=== PATIENT | female | born 1945 | race African-American/Black ===

== ENCOUNTER 2016-10-19 08:06 | Inpatient (IN) | payer OTHER ==
--- NOTE | ~2016-10-19 | CN ---
Consultation Report [facility] [address] [place]. [address] NAME: RENE PONCE : 49 STATUS : ADM IN PAT#: [id number] AGE: 71 ADM/REG DATE : 10/19/16 MR#: [id number] REPORT SERV DATE: 10/19/16 DICTATED BY: JAILENE LEIVA DATE: 10/19/16 REPORT STATUS : Draft TRANSCRIBED BY: MODTameka DATE: 10/19/16 CONSULTATION DATE OF CONSULTATION: REQUESTING PHYSICIAN: Getachew Garcia M.D. REASON FOR CONSULTATION: Acute kidney injury versus progressive chronic kidney disease. HISTORY OF PRESENT ILLNESS: This is a pleasant 71-year-old female patient, who was previously seen by Dr. Kali Hollins with our practice in 2014, and seen in followup post that by Dr. Blake Helton, with last known baseline creatinine at 2.5 in 2014, with the patient being evaluated in March of 2016 with acute kidney injury at 3.0, dissipating to 2.8 on 04/10/2016 with dismissal. She was recently in [facility] and was evaluated while there by our service for acute kidney injury. She was seen in consultation by Dr. Nunes for acute kidney injury versus progressive chronic kidney disease, with serum creatinine of 4.9 on 10/12/2016. She was subsequently followed by Dr. Guadalupe with creatinine at 4.8 on 10/13/2016. On 10/14/2016, creatinine at 4.7, and she was dismissed on 10/15/2016 by the hospitalist service with intentions for rapid followup. Indications and available PMD discussion suggests that the patient would likely be sent home on p.o. antibiotics. The patient according to the daughter was not dismissed on antibiotics to home. Mentation was noted to be problematic during her evaluation at [facility], but had improved with inpatient treatment, thus, no neurologic consultation was undertaken. The patient reports now to [facility] as Dr. Getachew Garcia will be taking over her primary care and they have seen Dr. Garcia's, nurse practitioner. The daughter reports that the patient's mentation has become worse over the last 48 hours and progressively declined. She has chronic difficulty with nausea and has had poor p.o. intake and has also had at least one to two appearances of emesis. The patient is lying in bed this afternoon and is somewhat confused at baseline. The daughter states that approximately three to four weeks ago, her baseline mentation was stable. A cursory imaging here at [facility] with CT of the brain without contrast shows involutional changes and chronic ischemic findings with no acute finding demonstrated on the noncontrast CT of the brain. The patient is awake and alert. Mentation is poor as above. Much of her medical history and recent information for HPI is provided by her daughter. PAST MEDICAL HISTORY: Positive for chronic kidney disease with baseline creatinine is as listed above. Most recent serum creatinine at 4.7 on 10/14/2016, with previous notation of creatinine prior baseline noted back in 2015 at 2.8 in March of that year. Remainder of her medical history is positive for hypertension, multiple sclerosis followed by Dr. Brittnee Levin, CHF, unknown ejection fraction, carpal tunnel, glaucoma, hysterectomy in 1984. REVIEW OF SYSTEMS: Review of systems is completed with the assistance of family who was at bedside. Consultation Report [address] [place]. [address] NAME: RENE PONCE : 49 STATUS : [facility]#: [id number] AGE: 71 ADM/REG DATE : 10/19/16 MR#: [id number] REPORT SERV DATE: 10/19/16 DICTATED BY: JAILENE LEIVA DATE: 10/19/16 REPORT STATUS : Draft TRANSCRIBED BY: FREDDIE DATE: 10/19/16 SOCIAL HISTORY: Currently no EtOH. No illicit drugs. No tobacco. She does have a previous remote history of tobacco abuse according to the daughter, smoking approximately one pack per day. Duration of tobacco abuse is unknown as the daughter was at the time of her mother's tobacco abuse very young. PHYSICAL EXAMINATION: VITAL SIGNS: Blood pressure 152/65, pulse 93, respirations 18, oxygen saturation at 100%. She was 90.71 kilos. GENERAL: She is a chronically ill-appearing female patient, with baseline confusion, lying in bed during evaluation. HEENT: Normocephalic and atraumatic. Normal ocular movements. No scleral icterus. No conjunctival pallor is appreciated. NECK: Supple without thyromegaly. No JVD or mass. CHEST: Shows positive S1 and S2. No rubs or gallops. LUNGS: Diminished. Clear to auscultation throughout, with normal expansion and effort bilaterally without rhonchi or wheezes. GASTROINTESTINAL: Positive bowel sounds in all four quadrants. No appreciable mass or tenderness. GENITOURINARY: Deferred. She does have a Chatterjee catheter with clear yellow urine at the bedside drainage. NEUROLOGIC: She is difficult to test, but appears to be at baseline confused, but grossly intact and nonfocal. EXTREMITIES: Show positive pulses to all four extremities. She does have some noted lower extremity edema. She appears to have some level of footdrop to cursory evaluation. PSYCH: She is of appropriate mood and affect overall, but again at baseline confused. ALLERGIES: SHE LISTS TO CODEINE AN ALLERGY. MEDICATIONS: On entry are as follows amlodipine 5 mg p.o. daily, vitamin C 500 mg p.o. b.i.d., Rocaltrol 0.5 mcg p.o. daily, Nexium 40 mg daily, Apresoline 25 mg p.o. t.i.d., Lopressor 25 mg p.o. b.i.d., multivitamin one tab p.o. daily, and Ditropan 5 mg p.o. daily. FAMILY HISTORY: No indication of chronic renal disease or end-stage renal disease. LABORATORY AND DIAGNOSTIC DATA: Pertinent laboratories and imaging to this evaluation are as follows. AP portable chest x-ray shows no acute findings. CMP shows sodium 139, potassium 4.1, chloride 108, CO2 18, BUN 54, creatinine at 5.51, reflected GFR at 8 mL/minute. Glucose of 137, calcium 10.0, magnesium 2.3, total protein 6.7, albumin 2.7, ALT 11, AST 12, lipase 280, troponin less than 0.02. White blood cell count of 12.4, RBC 3.90, hemoglobin 10.7, hematocrit 32.4. CT of the brain without contrast, no acute findings as listed above in HPI. CT of the abdomen and pelvis shows a fecal impaction in the rectum with 7 cm stool ball, no acute finding otherwise demonstrated on noncontrast CT of the abdomen and pelvis. Urinalysis is hazy in appearance, specific gravity of 1.10, minimal white blood cells or RBCs, no indication of glucose, or ketones. No indication of leukocyte esterase. Protein to greater than 500 mg/dL. Consultation Report [facility] [address] [place]. [address] NAME: RENE PONCE : 49 STATUS : ADM IN PAT#: [id number] AGE: 71 ADM/REG DATE : 10/19/16 MR#: [id number] REPORT SERV DATE: 10/19/16 DICTATED BY: JAILENE LEIVA DATE: 10/19/16 REPORT STATUS : Draft TRANSCRIBED BY: MODTameka DATE: 10/19/16 IMPRESSION AND PLAN: This is a 71-year-old female patient, who is evaluated at [facility] after recent inpatient stay at [facility] with HPI as reflected above. Mentation has worsened over the last 48 to 72 hours. We have been consulted in regard to worsening renal function. It does not appear that she currently has an active urinary tract infection judging by cursory evaluation of her urinalysis. She does have an elevated white count, but has had no febrile episodes according to the family at home. Her appetite has diminished and she has had some difficulty with nausea and least on two occasions some level of emesis. There was a question at previous hospitalization regarding possible dementia, but it is unclear at this point, if there was further workup undertaken. The daughter who is at bedside this afternoon states that the patient was not further evaluated by Neurology Services while there. She does state that her mother's current mental status has worsened and dissipated over the last two to three weeks. Current plan from a renal perspective will be the following; check urine studies including urine creatinine and urine sodium. Check BNP with known history of a congestive heart failure. Consider echocardiogram, but we will deferred to primary team. Spot protein to creatinine ratio. Blood cultures x2, as she does have an elevated white count, and no indication of urinary tract infection, with depressed bicarb. We will place her on quarter normal saline with 2 amps of bicarb at 100 mL an hour, with careful in judicious hydration, due to her known history of congestive heart failure, with unclear ejection fraction. She does have good urinary output currently and her potassium is stable which is encouraging. However, her altered mentation may be progressive uremia, if not dementia, and she may certainly need to initiate hemodialysis. If in fact this is dementia, we will have to consider overall appropriateness for hemodialysis as we progress. She is also followed by Dr. Brittnee Levin for lupus, and the patient has historically been on injections, and then changed to p.o. control as she apparently had a rather difficult time with administering injections. We will defer antibiotic coverage as well as addressing fecal impaction to primary team, quarter normal saline as listed above, urine studies, check BNP, check spot protein to creatinine ratio, blood cultures x2, n.p.o. after midnight, and consider possible hemodialysis over the next 24 to 48 hours if clinically the patient does not improve. The family is at bedside and they have been advised of current treatment plan and they are in agreement. Further modification of treatment plan may be made based on clinical presentation of the patient laboratory results, further consultation with renal attending. We appreciate consultation. We are glad to follow this patient with you. DICTATED BY: Forrest Gates NP JR/FREDDIE Jailene Leiva M.D. / [id number] Consultation Report [address] [place]. [address] NAME: RENE PONCE : 49 STATUS : [facility]#: [id number] AGE: 71 ADM/REG DATE : 10/19/16 MR#: [id number] REPORT SERV DATE: 10/19/16 DICTATED BY: JAILENE LEIVA DATE: 10/19/16 REPORT STATUS : Draft TRANSCRIBED BY: FREDDIE DATE: 10/19/16 CC: Getachew Garcia M.D.
--- NOTE | ~2016-10-19 | EEG ---
Electroencephalogram [facility] [id number] [place]. [address] NAME: RENE PONCE : 49 STATUS : ADM IN PAT#: [id number] AGE: 71 ADM/REG DATE : 10/19/16 MR#: [id number] REPORT SERV DATE: 10/20/16 DICTATED BY: GURVINDER BOYD DATE: 10/20/16 REPORT STATUS : Draft TRANSCRIBED BY: FREDDIE DATE: 10/20/16 ELECTROENCEPHALOGRAPHY REPORT REQUESTING PHYSICIAN: Dr. Getachew Garcia. ORDERING PHYSICIAN: Dr. Cassy Aguilera APN. INTERPRETING PHYSICIAN: Gurvinder Boyd M.D.-Neurology. REASON FOR EEG: History of possible seizures, altered mental status. 23 surface electrodes, 10-20 international placement was used. The patient was noted to be awake, drowsy, and asleep. Photic stimulation was performed. The video monitoring was utilized. The background activity consisted of moderate voltage poorly organized 8 cycles per second located in the posterior head regions. This activity did not appear to attenuate very well with eye opening maneuvers. During stage 2 sleep, the patient observed to have intermittent bilaterally synchronous and asynchronous low-voltage spike activity which was present in the central and temporal regions. This spike activity was isolated to one or multiple spikes. The frequency of the epileptiform discharges increased until the patient was observed to have tonic-clonic activity of the shoulders. Sustained muscle contraction was observed and this represented a seizure activity which lasted approximately 60 seconds. The patient appeared to have 2 more episodes of seizure activity following discharges of low voltage spike activity which appeared to be generalized and bilaterally synchronous. The activity was most prominent in the frontal and central regions. IMPRESSION: MARKEDLY ABNORMAL EEG CHARACTERIZED BY PRESENCE OF INTERMITTENT PAROXYSMAL LOW VOLTAGE SPIKE ACTIVITY WHICH INVOLVES FRONTAL CENTRAL REGIONS EVENTUALLY GENERALIZED TO A TONIC-CLONIC SEIZURE. THE ABOVE-MENTIONED ACTIVITY OCCURRED DURING STAGE 2 SLEEP. THE PATIENT'S PARTS SALES COUNTERPERSON AT THE TIME OF ABNORMAL ACTIVITY REMAINED STABLE WITH REGULAR SINUS RHYTHM OF APPROXIMATELY 72 BEATS PER MINUTE. SLIGHT PROLONGATION OF THE PA INTERVAL WAS NOTED AND POSSIBLE PACEMAKER ARTIFACT WAS ALSO SEEN. THIS EEG IS COMPATIBLE WITH PRESENCE OF A SEIZURE DISORDER OF GENERALIZED TYPE. CLINICAL CORRELATIONS AND NEUROLOGICAL FOLLOWUP IS RECOMMENDED. [place]/FREDDIE Gurvinder Boyd MD / [id number] CC: Getachew Garcia M.D.
--- NOTE | ~2016-10-19 | CN ---
Consultation Report [facility] [address] [place]. [address] NAME: RENE PONCE : 49 STATUS : ADM IN [facility]#: [id number] AGE: 71 ADM/REG DATE : 10/19/16 MR#: [id number] REPORT SERV DATE: 10/26/16 DICTATED BY: JEFFERY CUENCA DATE: 10/26/16 REPORT STATUS : Draft TRANSCRIBED BY: FREDDIE DATE: 10/26/16 DATE OF CONSULTATION: 10/26/2016 REASON FOR CONSULTATION: Uncontrollable hypertension, worsening mental status. CHIEF COMPLAINT: Unable to obtain due to the patient's current medical status. HISTORY OF PRESENT ILLNESS: Mrs. Ponce is a 71-year-old female, who has been admitted now for over a week with underlying encephalopathy, hypertension, kidney failure, and seizures. Per nursing staff, the patient had another seizure and was having hypertension at that time. Neurology is currently involved, and the patient is on antiepileptic drugs. Speaking to the patient this morning, I am unable to obtain any following of commands. She is able to protect her airway, however. She has been placed on nicardipine, which does seem to reduce her blood pressure which was around 200, now down to about 130. Otherwise, no further complaints. PAST MEDICAL HISTORY: Chronic kidney disease, congestive heart failure, multiple sclerosis, hypertension, glaucoma, carpal tunnel. HOME MEDICATIONS: Home medication list reviewed. Antihypertensive medications are amlodipine and Lopressor. ALLERGIES: CODEINE. FAMILY HISTORY: Currently, no family at the bedside. Per record, no chronic kidney disease. The patient's mother of a brain aneurysm. SOCIAL HISTORY: The patient is single. She has a history of tobacco use. No current alcohol or illicit drug use. REVIEW OF SYSTEMS: All pertinent review of systems reviewed and is otherwise negative. PHYSICAL EXAMINATION: VITAL SIGNS: The patient is currently afebrile, heart rate in the 80s, respiratory rate 10 to 15, oxygen saturation 97% on room air, blood pressure prior to coming in was over 200 and now at 135. GENERAL: The patient seems to be in no distress. Noncommunicative, does not follow commands. NECK: Supple. No JVD. PULMONARY: Equal breath sounds bilaterally. No wheezing. CARDIAC: Regular rate. No murmurs. ABDOMEN: Soft, nontender, nondistended. EXTREMITIES: Peripheral pulses noted in all extremity. No cyanosis. Consultation Report [facility] [id number] [place]. [address] NAME: RENE PONCE : 49 STATUS : ADM IN [facility]#: [id number] AGE: 71 ADM/REG DATE : 10/19/16 MR#: [id number] REPORT SERV DATE: 10/26/16 DICTATED BY: JEFFERY UCENCA DATE: 10/26/16 REPORT STATUS : Draft TRANSCRIBED BY: MODL DATE: 10/26/16 LABORATORY EXAMINATION: Mild anemia. Creatinine 4.25, BUN 73, bicarb 16, ammonia 16. IMAGING: MRI of the brain done on 10/21 shows diffusely enlarged ventricles, mild-to- moderate chronic microvascular ischemic changes. ASSESSMENT AND PLAN: Mrs. Ponce is a 71-year-old female with a past medical history noted above, who presents with worsening mental status changes in the setting of seizures and hypertension, unclear whether hypertension is a reflection of the seizure activity. 1. Hypertensive urgency: We will discontinue clonidine, but continue clonidine transdermal patch. Since the patient is not taking anything by mouth, we will give metoprolol 10 mg IV q.6 along with hydralazine 20 mg IV q.6 and wean off the nicardipine. Once she is able to take p.o., we can also start Imdur and amlodipine and transition to p.o. medications. 2. Altered mental status: Neurology is currently following. The patient is protecting her airway luckily. Cannot take p.o. due to the patient's medical status. Thank you very much for this consultation. We will continue to follow along with you in the critical care unit. Please call with any further questions or concerns. HFQ/MODL Jeffery Cuenca MD / [id number] CC: Getachew Garcia M.D.
--- NOTE | ~2016-10-19 | EEG ---
Electroencephalogram [facility] [address] [place]. [address] NAME: RENE PONCE : 49 STATUS : ADM IN PAT#: [id number] AGE: 71 ADM/REG DATE : 10/19/16 MR#: [id number] REPORT SERV DATE: 10/24/16 DICTATED BY: DATE: REPORT STATUS : Draft TRANSCRIBED BY: MODL DATE: 10/24/16 NEUROLOGY EEG REPORT CLINICAL INDICATIONS: Encephalopathy. DESCRIPTION: This EEG was performed using 10/20 electrode placement system. During the EEG study, symmetric background activity was noted with predominant occipital rhythm of roughly 8 hertz. Photic stimulation was performed. No clear driving response was seen during the EEG study. Significant muscle artifact was noted with the patient noted to have episodes of rhythmic muscle artifacts during the EEG study, mostly in the bilateral central frontal area best seen in the transverse montage. No clear high-voltage epileptiform discharge was otherwise noted. However secondary to muscle artifact, low voltage epileptiform discharge cannot be ruled out especially during the rhythmic muscle movement. Hyperventilation was not performed during the EEG study. Bilateral upper extremity showed a jerk observed during previous EEG, was not observed during this EEG study. The patient achieved drowsy state during the EEG study. INTERPRETATION: This EEG study obtained during awake and drowsy state is contaminated with significant muscle artifact as well as presence of rhythmic muscle activities which might have obscured underlying epileptiform discharge. Subtle subclinical seizure cannot be completely ruled out. The patient remains encephalopathic during the EEG evaluation. [facility]/MODL Darren James MD / [id number] CC: Getachew Garcia M.D.
--- NOTE | ~2016-10-19 | EEG ---
Electroencephalogram [facility] [address] [facility] [place]. [address] NAME: RENE PONCE : 49 STATUS : ADM IN PAT#: [id number] AGE: 71 ADM/REG DATE : 10/19/16 MR#: [id number] REPORT SERV DATE: 10/22/16 DICTATED BY: DATE: REPORT STATUS : Draft TRANSCRIBED BY: MODL DATE: 10/22/16 CLINICAL INDICATIONS: Seizures, encephalopathy. DISCUSSION: This EEG was performed using 10/20 electrode placement system. During the EEG study, symmetric background activity was noted with muscle artifact contamination. The patient was noted to have a predominant occipital rhythm of roughly 7-8 hertz. Initially, the patient was noted to have a P3 electrode artifact that was subsequently resolved after adjustment of the P3 electrodes. Photic stimulation was performed, however, no clear driving response was seen. Hyperventilation was not performed secondary to the patient's underlying medical condition. During the EEG study, the patient achieved drowsy, stage I and II sleep with appropriate K-complexes and sleep spindles. No electrographic seizure was otherwise seen. No clinical seizure was observed. INTERPRETATION: This EEG study obtained during awake and drowsy as well as stage I and II sleep may be considered within normal limits. No focal abnormalities, seizure activity, or seizure discharge were noted. No electrographic seizure was otherwise seen. No clinical seizure was otherwise observed. Clinical correlation is recommended. [facility]/FREDDIE Darren James MD / [id number] CC: Getachew Garcia M.D.
--- NOTE | ~2016-10-19 | DS ---
Discharge Summary [facility] [address] [place]. [address] NAME: RENE PONCE : 49 STATUS : DIS IN PAT#: [id number] AGE: 71 ADM/REG DATE : 10/19/16 MR#: [id number] REPORT SERV DATE: 11/07/16 DICTATED BY: JESÚS LOZA DATE: 11/06/16 REPORT STATUS : Draft TRANSCRIBED BY: FREDDIE DATE: 11/06/16 Data Collection from hospitalization DISCHARGE DIAGNOSES: 1. Altered mental status-encephalopathy. 2. Seizures. 3. Dysphagia. 4. Hypertension. 5. Chronic kidney disease-not candidate for hemodialysis secondary to #1. 6. Vascular dementia. 7. History of multiple sclerosis. 8. History of transient ischemic attack. 9. Incontinence. 10.Gastroesophageal reflux disease. 11.Congestive heart failure. 12.Glaucoma. 13.Former smoker. CONSULTATIONS: Dr. Cj Leiva, Cassy Aguilera, and Dr. Jeffery Cuenca. PROCEDURES: 1. CT scan of the brain without contrast, 10/19/2016. 2. CT scan of the abdomen and pelvis without contrast, 10/19/2016. 3. Renal ultrasound, 10/20/2016. 4. Carotid blood flow study, 10/21/2016. 5. MRI of the brain without contrast, 10/21/2016. 6. Fluoroscopic-guided lumbar puncture, 10/24/2016. 7. Electroencephalogram, 10/20/2016. 8. Electroencephalogram, 10/22/2016. 9. Electroencephalogram, 10/24/2016. DISCHARGE MEDICATIONS: Norvasc 5 mg twice a day, aspirin 81 mg daily, Depakote 750 mg twice a day, Keppra 500 mg twice a day, Lopressor 25 mg twice a day, Catapres-TTS 0.3 mg topically every seven days, Apresoline 25 mg every 8 hours, Deltasone 40 mg with breakfast. CONDITION ON DISCHARGE: Stable. DISPOSITION: The patient was discharged to [facility] to be followed by [facility]. HOSPITAL COURSE: This is a 71-year-old female who had developed an acute mental status change. The patient has a history of multiple sclerosis and chronic kidney disease. She had developed projectile vomiting Thursday prior to this admission. She has a history of chronic kidney disease, and her family had been concerned, and she was taken to [facility]. She had been admitted to the hospital there and had various testing done. She was sent home on Thursday prior to this admission. According to her granddaughter, she was not placed on any medication. The patient did not talk or eat for two days. She was confused most likely due to her urinary tract infection. The patient's granddaughter said the Discharge Summary [facility] [id number] [place]. [address] NAME: RENE PONCE : 47 STATUS : DIS IN PAT#: [id number] AGE: 71 ADM/REG DATE : 10/19/16 MR#: [id number] REPORT SERV DATE: 11/07/16 DICTATED BY: JESÚS LOZA DATE: 11/06/16 REPORT STATUS : Draft TRANSCRIBED BY: FREDDIE DATE: 11/06/16 patient had been confused on and off ever since she stopped taking her Avonex injections 2- 1/2 years previously. The patient had been taken off the Avonex because she kept getting urinary tract infections. The granddaughter also mentioned that the patient had "episodes of silence" in which she had intermittent right-sided facial droop with ptosis and right- sided weakness. She was admitted to the hospital at this time for further evaluation and treatment. Upon admission, the patient was seen by Dr. Cj Leiva regarding acute kidney injury versus progressive chronic kidney disease. A CT scan of the brain without contrast had been performed as well as a CT scan of the abdomen and pelvis without contrast. CT scan of the brain showed involutional changes and chronic ischemic findings with no acute findings demonstrated on the noncontrast CT scan of the brain. Her mentation was poor. Creatinine level was 5.51. CT scan of the abdomen and pelvis showed no acute findings other than a fecal impaction in the rectum with a 7 cm stool ball. Her mentation had worsened over the last 48 to 72 hours. It did not appear that she currently had an active urinary tract infection. She did have an elevated white count but no febrile episodes according to her family at home. Her appetite was diminished, and she had some difficulty with nausea and at least 2 occasions of some level of emesis. Blood cultures were obtained. She was placed on IV fluids. Urine studies and BNP were going to be checked as well as spot protein to creatinine ratio. The following day, she was seen by Cassy Aguilera. A renal ultrasound had been performed. She had been asked to see the patient regarding acute mental status change with a history of multiple sclerosis. She was felt to have acute metabolic encephalopathy that was multifactorial in nature. An MRI of the brain without contrast was requested as well as a carotid duplex study and echocardiogram with bubble study. She was placed on aspirin and Lipitor. EEG was going to be performed. She was felt to have probable underlying dementia. 10/20/2016, white count was 9.8. The patient does have vitamin D deficiency. An EEG was performed. It was markedly abnormal characterized by the presence of intermittent paroxysmal low voltage spike activity which involves frontal central regions, eventually generalized to a tonic-clonic seizure. The above-mentioned activity occurred during stage 2 sleep. supervisor [employer] at the time of abnormal activity remained stable with regular sinus rhythm of approximately 72 beats per minute. There was slight prolongation of the WI interval, and possible pacemaker artifact was also seen. 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 Her pressure was not well controlled. The patient was on Keppra. The patient had been having intermittent seizures which could explain the episode of poor responsiveness. Adjustments were made to Keppra. ABGs were going to be checked. Following day, she did have some right upper extremity movement/myoclonus like movement. She was receiving Keppra, Dilantin, and Depakote. Vimpat was added. We were considering adding scheduled Ativan and Solu-Medrol. If the blood culture grows contaminant, we would start a trial of Solu-Medrol. An MRI of the brain without contrast was performed as well as a carotid blood flow study. She was evaluated by Occupational Therapy and Physical Therapy. Urinalysis had revealed a urinary tract infection. She had 2+ edema of the legs and feet. Maxipime was stopped. 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 She continued to have confusion. A PICC line was inserted. She could follow simple commands. MRI showed no acute CVA or other acute intracranial pathology. There were diffusely enlarged ventricles. Supportive care continued. Electroencephalogram was performed. This EEG study obtained during awake and drowsy as well as stage 1 and 2 sleep may be considered within normal limits. There were no Discharge Summary [facility] [address] [place]. [address] NAME: RENE PONCE : 47 STATUS : DIS IN PAT#: [id number] AGE: 71 ADM/REG DATE : 10/19/16 MR#: [id number] REPORT SERV DATE: 11/07/16 DICTATED BY: JESÚS LOZA DATE: 11/06/16 REPORT STATUS : Draft TRANSCRIBED BY: FREDDIE DATE: 11/06/16 focal abnormalities, seizure activity, or seizure discharge noted. No electrographic seizure was seen otherwise. No clinical seizure was otherwise observed. Blood pressure was controlled at this time. The patient is not a candidate for hemodialysis. On 10/23/2016, she did have a cough with oral intake. She was held n.p.o. secondary to her constant coughing. It was felt that she should undergo a lumbar puncture. Repeat EEG was requested. She was evaluated by Physical Therapy. She was found to have seizure activity again on 10/24/2016. A bedside swallow study was performed. There were no overt signs or symptoms of aspiration. She does have a delayed swallow. Aspiration precautions were in place. Repeat EEG was performed. This study was contaminated with significant muscle artifact as well as the presence of rhythmic muscle activities which might have obscured underlying epileptiform discharge. Subtle subclinical seizure could not be completely ruled out. The patient remained encephalopathic during the EEG evaluation. Fluoroscopic-guided lumbar puncture was also performed. On the , the patient had been on a 72-hour trial of Solu-Medrol with no improvement. Her mentation was not improving despite aggressive therapy. Keppra was decreased. Ammonia level was going to be checked. Solu-Medrol was stopped. Oral steroids were started. A [facility] liaison met with the patient at the bedside. The patient's family was going to meet with [facility] to discuss placement. On the , Keppra was again decreased. The patient remained a DNR code status. She was receiving Cardene drip. Medications were changed to IV dosing. We were going to proceed with comfort care. On the , she was able to tolerate pills with ice cream. Keppra was again decreased. Depakote was decreased. She had been seen by Dr. Jeffery Cuenca regarding uncontrollable hypertension and worsening mental status. The patient was unable to follow commands. She was able to protect her airway. She had been placed on nicardipine which did seem to reduce her blood pressure. Creatinine level was 4.25. Clonidine had been discontinued, but clonidine transdermal patch was continued. She was receiving IV metoprolol and IV hydralazine. She was being weaned off the nicardipine. It was felt that the patient did not meet the criteria [facility]. The goal was for placement at half-way facility. Physical therapy was placed on hold. On 10/28/2016, Lopressor was changed to oral Norvasc. Hydralazine was restarted. She continued to be very encephalopathic. The patient's family had requested hospice. Discharge instructions were given. Due to her stable condition, she was discharged to [facility] to be followed by [facility]. Information collected by: Naida Renteria I submit the above information as my discharge summary. ESTHER/FREDDIE Jesús Loza M.D. / [id number] CC: Isabel Joy MD Discharge Summary [address] [address] NAME: RENE PONCE : 47 STATUS : DIS IN PAT#: [id number] AGE: 71 ADM/REG DATE : 10/19/16 MR#: [id number] REPORT SERV DATE: 11/07/16 DICTATED BY: JESÚS LOZA DATE: 11/06/16 REPORT STATUS : Draft TRANSCRIBED BY: MODTameka DATE: 11/06/16 Cj Leiva M.D. [facility]
--- NOTE | ~2016-10-19 | CN ---
Consultation Report [facility] [address] [place]. [address] NAME: RENE PONEC : 49 STATUS : ADM IN PAT#: [id number] AGE: 71 ADM/REG DATE : 10/19/16 MR#: [id number] REPORT SERV DATE: 10/20/16 DICTATED BY: MARTHA GÓMEZ DATE: 10/20/16 REPORT STATUS : Draft TRANSCRIBED BY: MODTameka DATE: 10/20/16 NEUROLOGY CONSULTATION DATE OF CONSULTATION: 10/20/2016 REASON FOR CONSULTATION: Acute mental status change with a history of multiple sclerosis. NEUROLOGIST: Dr. Brittnee Levin. HISTORY OF PRESENT ILLNESS: The patient is a 71-year-old female who began to projectile vomit last Thursday. She has a history of chronic kidney disease, and her family was concerned so they took her to [facility]. She was admitted to the hospital and had various testing done. She was sent home on Thursday, and according to the granddaughter, was not placed on any medications. The patient would not talk or eat for two days. She then was confused most likely due to her UTI. The granddaughter was asked specifically if it was "common for her to be confused." The granddaughter who is a certified lactation educator at a facility that takes care of dementia patients stated that the patient commonly was confused and questionably had underlying dementia. She mentions that the patient has been confused on and off ever since she stopped taking her Avonex injections two and a half years ago. The patient was taken off her Avonex because she kept getting urinary tract infections. The granddaughter also mentions that the patient has "episodes of silence" in which she has intermittent right-sided facial droop with ptosis and right-sided weakness. PAST MEDICAL HISTORY: Multiple sclerosis, chronic kidney disease, hypertension, congestive heart failure, carpal tunnel syndrome, glaucoma, history of tobacco abuse, and obesity. PAST SURGICAL HISTORY: Total abdominal hysterectomy, left total knee arthroplasty (the patient acquires sepsis in the knee so the artificial joint was taken out and she had a arturo replacement), bilateral carpal tunnel release, and trabeculectomy. HOME MEDICATIONS: List includes Norvasc 5 mg daily, vitamin C 500 mg b.i.d., Rocaltrol 0.5 mg q.a.m., Nexium 40 mg daily, Apresoline 25 mg t.i.d., Lopressor 25 mg b.i.d., multivitamin daily, Ditropan XL 5 mg q.a.m. ALLERGIES: CODEINE. SOCIAL HISTORY: The patient is single. She lives with her daughter. She has one child. She has a history of tobacco abuse. No alcohol or illicit use. FAMILY HISTORY: Unobtainable from the patient. The granddaughter mentions that her the patient's mother of a brain aneurysm, but the rest of her family history is unknown. REVIEW OF SYSTEMS: Consultation Report [facility] [address] [place]. [address] NAME: RENE PONCE : 47 STATUS : ADM IN [facility]#: [id number] AGE: 71 ADM/REG DATE : 10/19/16 MR#: [id number] REPORT SERV DATE: 10/20/16 DICTATED BY: MARTHA GÓMEZ DATE: 10/20/16 REPORT STATUS : Draft TRANSCRIBED BY: FREDDIE DATE: 10/20/16 Please refer to HPI. PHYSICAL EXAMINATION: VITAL SIGNS: The patient is a 71-year-old female, who stands 5 feet 6 inches tall and weighs 185 pounds. She is slightly febrile with a temperature of 99.1 degrees, heart rate 89, respiratory rate 16, O2 saturations on room air 99%, blood pressure is 193/77. NEURO: The patient is alert. She is talkative, confused. She is oriented to person only, not place, time, or situation. She will follow simple commands. Speech is clear. Language fluent. Pupils are 3 mm. PERRLA. EOMs are intact. Unable to accurately assess peripheral vision via confrontation. The patient has ptosis of the right eye. She has right facial droop. No tongue deviation. No reported sensory deficits when checking regions of the trigeminal nerve. Unable to adequately perform [id number]. She does have a pronator drift on the right. Upper extremity strength on the left is 5/5, on the right is 4/5. No obvious tremor, dysmetria, or asterixis. Upper DTRs are 2+ bilaterally. No reported sensory deficits. Lower extremity strength is 2/5 bilaterally. The patient has footdrop bilaterally. Unable to elicit a DTR in the left patellar region (chronic right patellar is 1+). Plantar reflexes, downgoing toes. The patient is unable to ambulate. NECK: No carotid bruits, JVD, or thyromegaly. CHEST: Lung sounds reveal some crackles in the bases. CARDIAC: Regular rate and rhythm. CBC shows a hemoglobin and hematocrit of 9.8 and 28.7. BMP: BUN is 51 and creatinine 4.83. Urinalysis is positive for UTI. CT of the abdomen and pelvis, fecal impaction, [address] of the brain, no acute changes. ASSESSMENT/PLAN: 1. Acute encephalopathy, is multifactorial in nature and this is. a. The patient has a urinary tract infection and this is being treated per the hospitalist. b. Must rule out stroke, the patient will undergo an MRI of the brain without gadolinium, carotid duplex study, and echocardiogram with bubble study. She will be placed on aspirin 81 mg p.o. daily and Lipitor 40 mg p.o. at bedtime. c. Rule out seizure, she will undergo an EEG today. 2. Multiple sclerosis. The patient will have PT/OT consultation and have a bedside dysphagia screen. If she fails, she will have Speech Therapy consultation. She will follow up with a neurologist outpatient, doubtful if this is an exacerbation unless her MRI shows inflammation. 3. Hypertension. This will be treated per hospitalist team. 4. Acute kidney injury in addition to chronic kidney disease. 5. Probable underlying dementia. Thank you again for including us in consultation. We will follow with you. Consultation Report [address] [place]. [address] NAME: RENE PONCE : 49 STATUS : ADM IN [facility]#: [id number] AGE: 71 ADM/REG DATE : 10/19/16 MR#: [id number] REPORT SERV DATE: 10/20/16 DICTATED BY: MARTHA GÓMEZ DATE: 10/20/16 REPORT STATUS : Draft TRANSCRIBED BY: FREDDIE DATE: 10/20/16 YESICA/FREDDIE TITO SimmsP- / [id number] CC: Isabel Joy M.D.
[2016-10-19 09:22] LABS: BASOPHILS 0.3 %; BASOPHILS ABSOLUTE 0.04 10/3/uL (0.0-0.16); EOSINOPHILS ABSOLUTE 0.25 10/3/uL (0.0-0.53); ER CBC TAT 0 Hrs 08 Mins; HEMATOCRIT 32.4 % (36.0-48.0); HEMOGLOBIN 10.7 g/dL (12.0-16.0); IMMATURE GRANULOCYTES 0.6 %; LYMPHOCYTES 17.8 %; LYMPHOCYTES ABSOLUTE 2.21 10/3/uL (0.67-4.30); MEAN CORPUSCULAR HEMOGLOB 27.4 pg (26.0-34.0); MEAN CORPUSCULAR VOLUME 83.1 fL (80-100); MONOCYTES 8.3 %; MONOCYTES ABSOLUTE 1.03 10/3/uL (0.21-1.20); NEUTROPHILS ABSOLUTE 8.83 10/3/uL (2.02-8.40); PLATELET COUNT 274 10/3/uL (150-400); RBC DISTRIBUTION WIDTH 15.2 % (12.0-16.0); WHITE BLOOD CELLS 12.4 10/3/uL (4.5-10.5)
[2016-10-19 09:24] LABS: IMMATURE GRANULOCYTES ABSOLUTE 0.07 10/3/uL (0.0-0.11); MANUAL DIFF NO %
[2016-10-19 09:29] LABS: INTERNATIONAL NORMAL RATI 1.1 UNITS (-); PARTIAL THROMBO TIME 27.7 SEC (22.5-37.2)
[2016-10-19 09:41] LABS: ALBUMIN 2.7 G/DL (3.5-5.0); CHEST PAIN PROFILE TAT 0 Hrs 27 Mins; CHLORIDE, SERUM 108 MMOL/L (96-112); POTASSIUM, SERUM 4.1 MMOL/L (3.5-5.3); SGOT(AST) 12 U/L (5-40); SGPT(ALT) 11 U/L (5-65); SODIUM, SERUM 139 MMOL/L (135-148); TOTAL BILIRUBIN 0.2 MG/DL (0-1.2); TOTAL PROTEIN 6.7 G/DL (6.0-8.5); TROPONIN I <0.02 NG/ML (<0.05)
[2016-10-19 09:43] LABS: ALKALINE PHOSPHATASE 90 U/L (45-117); BUN (BLOOD UREA NITROGEN) 54 MG/DL (6-23); CO2 (CARBON DIOXIDE) 18 MMOL/L (24-34); CREATININE 5.51 MG/DL (0.55-1.02); DIRECT BILIRUBIN < 0.1 MG/DL (0.0-0.4); GFR AFRICAN AMERICAN 8 ML/MIN (>=60); GFR NON AFRICAN AMERICAN 7 ML/MIN (>=60); GLUCOSE, SERUM 137 MG/DL (60-99); INDIRECT BILIRUBIN(NOT ORDER) 0.1 MG/DL (0.1-0.9)
[2016-10-19 09:45] LABS: ER DIFF TAT 0 Hrs 31 Mins; LYMPHOCYTES 22 %; LYMPHOCYTES ABSOLUTE (CALC) 2.73 10/3/uL (0.67-4.30); MONOCYTES 6 %; MONOCYTES ABSOLUTE (CALC) 0.74 10/3/uL (0.21-1.20); NEUTROPHILS ABSOLUTE (CALC) 8.93 10/3/uL (2.02-8.40); PLATELET ESTIMATE ADQ (ADEQUATE); RBC MORPHOLOGY NORM (NORMAL); SEGMENTED NEUTROPHIL (0) 72 %; TOTAL NUCLEATED CELLS 100
[2016-10-19 10:03] LABS: ASCORBIC ACID (UR NOT ORDER) NEG (NEG); BILIRUBIN, URINE NEGATIVE (NEG); ER URINALYSIS TAT 0 Hrs 18 Mins; KETONE, URINE NEGATIVE (NEG); LEUKOCYTE ESTERASE(NOT OR NEG (NEG); NITRITE (URINE) NEG (NEG); WBC (NOT ORDERED) (RFLEX) 10 (0-5)
[2016-10-19] MEDS ORDERED: ROCALTROL0.5 MCG PO (10:31)
[2016-10-19] MEDS ORDERED: APRES25 PO (10:31)
[2016-10-19] MEDS ORDERED: NORV5 PO (10:31)
[2016-10-19] MEDS ORDERED: DITROXL5 PO (10:32)
[2016-10-19] MEDS ORDERED: NEXIUM40 PO (10:32)
[2016-10-19] MEDS ORDERED: LOP25 PO (10:32)
[2016-10-19] MEDS ORDERED: MULTIVIT/MIN PO (10:33)
[2016-10-19] MEDS ORDERED: VITC500 PO (10:33)
[2016-10-19 18:39] LABS: CREATININE RANDOM UR 70.8 MG/DL; CREATININE, URINE 70.8 MG/DL; UR PROTEIN/CREAT RATIO 6.36 (< 0.2)
[2016-10-20 07:51] LABS: BASOPHILS 0.5 %; BASOPHILS ABSOLUTE 0.05 10/3/uL (0.0-0.16); EOSINOPHILS 3.9 %; EOSINOPHILS ABSOLUTE 0.38 10/3/uL (0.0-0.53); HEMATOCRIT 28.7 % (36.0-48.0); HEMOGLOBIN 9.8 g/dL (12.0-16.0); IMMATURE GRANULOCYTES 0.5 %; IMMATURE GRANULOCYTES ABSOLUTE 0.05 10/3/uL (0.0-0.11); LYMPHOCYTES 25.2 %; LYMPHOCYTES ABSOLUTE 2.46 10/3/uL (0.67-4.30); MEAN CORPUS HGB CONC 34.1 g/dL (32.0-36.0); MEAN CORPUSCULAR HEMOGLOB 28.1 pg (26.0-34.0); MEAN CORPUSCULAR VOLUME 82.2 fL (80-100); MEAN PLATELET VOLUME 9.4 fL (9.2-13.0); MONOCYTES 8.6 %; MONOCYTES ABSOLUTE 0.84 10/3/uL (0.21-1.20); NEUTROPHILS 61.3 %; NEUTROPHILS ABSOLUTE 5.98 10/3/uL (2.02-8.40); PLATELET COUNT 236 10/3/uL (150-400); RED CELL COUNT 3.49 10/6/uL (4.0-5.6); WHITE BLOOD CELLS 9.8 10/3/uL (4.5-10.5)
[2016-10-20 07:52] LABS: MANUAL DIFF NO %
[2016-10-20 08:05] LABS: AMMONIA < 10 UMOL/L (11-32)
[2016-10-20 08:27] LABS: B NATRIURETIC PEPTIDE (BNP) 49.7 PG/ML (< 100.0)
[2016-10-20 08:31] LABS: ALBUMIN 2.4 G/DL (3.5-5.0); BUN (BLOOD UREA NITROGEN) 51 MG/DL (6-23); CHLORIDE, SERUM 111 MMOL/L (96-112); CO2 (CARBON DIOXIDE) 20 MMOL/L (24-34); CREATININE 4.83 MG/DL (0.55-1.02); FOLATE 13.8 NG/ML (>5.2); GFR AFRICAN AMERICAN 10 ML/MIN (>=60); GFR NON AFRICAN AMERICAN 9 ML/MIN (>=60); GLUCOSE, SERUM 85 MG/DL (60-99); PHOSPHORUS, SERUM 4.8 MG/DL (2.5-4.5); POTASSIUM, SERUM 3.8 MMOL/L (3.5-5.3); SODIUM, SERUM 140 MMOL/L (135-148)
[2016-10-20 13:16] LABS: CALCIUM IONIZED 4.88 MG/DL (3.80-4.80)
[2016-10-20 13:40] LABS: CHOL/HDL RATIO(NOT ORDER) 2.4 (0-5); FREE T4 1.37 NG/DL (0.76-1.46); PHOSPHORUS, SERUM 4.7 MG/DL (2.5-4.5)
[2016-10-20 13:42] LABS: ULTRASENSITIVE TSH 1.51 MCIU/ML (0.358-3.740)
[2016-10-20 13:44] LABS: CORTISOL PM 22.4 UG/DL (3.1-16.7)
[2016-10-20 13:45] LABS: INTACT PTH (ICMA) 69.9 PG/ML (10.0-65.0)
[2016-10-20 14:40] LABS: GLYCOHEMOGLOBIN (HbA1c) 5.9 % (4.7-6.1)
[2016-10-20 19:14] LABS: C-REACTIVE PROTEIN 20.6 MG/L (<8.0)
[2016-10-20 19:28] LABS: C-REACTIVE PROTEIN 16.7 MG/L (<8.0)
[2016-10-20 20:06] LABS: SED RATE 61 MM/HR (0-20)
[2016-10-20 23:05] LABS: ALLENS TEST Pos; BE (BASE EXCESS) -4.6 MEQ/L (0 +/- 2.5); CARBOXYHEMOGLOBIN 0.4 % (0-3); HCO3 (ACTUAL BICARBONATE) 18.4 MEQ/L (23-27); HEMOBLOGIN CONTENT 9.2 G/DL (12-16); INSTRUMENT SERIAL # 8083; METHEMOGLOBIN 0.1 % (0-3); O2 CONTENT 12.6 VOL% (18-24); OPERATOR ID 14661; PCO2 (CO2 TENSION) 27 MMHG (35-45); PO2 (O2 TENSION) 96 MMHG (79-93); SAMPLE Arterial; pH 7.45 (7.37-7.43)
[2016-10-21 07:21] LABS: BASOPHILS 0.3 %; BASOPHILS ABSOLUTE 0.03 10/3/uL (0.0-0.16); EOSINOPHILS 3.8 %; EOSINOPHILS ABSOLUTE 0.35 10/3/uL (0.0-0.53); HEMOGLOBIN 9.6 g/dL (12.0-16.0); IMMATURE GRANULOCYTES 0.7 %; IMMATURE GRANULOCYTES ABSOLUTE 0.06 10/3/uL (0.0-0.11); LYMPHOCYTES 30.5 %; LYMPHOCYTES ABSOLUTE 2.81 10/3/uL (0.67-4.30); MEAN CORPUS HGB CONC 33.1 g/dL (32.0-36.0); MEAN CORPUSCULAR HEMOGLOB 27.4 pg (26.0-34.0); MEAN CORPUSCULAR VOLUME 82.6 fL (80-100); MEAN PLATELET VOLUME 9.5 fL (9.2-13.0); MONOCYTES 8.6 %; MONOCYTES ABSOLUTE 0.79 10/3/uL (0.21-1.20); NEUTROPHILS 56.1 %; NEUTROPHILS ABSOLUTE 5.17 10/3/uL (2.02-8.40); PLATELET COUNT 231 10/3/uL (150-400); RBC DISTRIBUTION WIDTH 15.2 % (12.0-16.0); RED CELL COUNT 3.51 10/6/uL (4.0-5.6); WHITE BLOOD CELLS 9.2 10/3/uL (4.5-10.5)
[2016-10-21 07:23] LABS: MANUAL DIFF NO %
[2016-10-21 07:43] LABS: ALBUMIN 2.4 G/DL (3.5-5.0); BUN (BLOOD UREA NITROGEN) 57 MG/DL (6-23); CHLORIDE, SERUM 110 MMOL/L (96-112); CO2 (CARBON DIOXIDE) 21 MMOL/L (24-34); CREATININE 4.86 MG/DL (0.55-1.02); GFR AFRICAN AMERICAN 10 ML/MIN (>=60); GFR NON AFRICAN AMERICAN 8 ML/MIN (>=60); GLUCOSE, SERUM 125 MG/DL (60-99); PHOSPHORUS, SERUM 5.7 MG/DL (2.5-4.5); SODIUM, SERUM 142 MMOL/L (135-148)
[2016-10-22 06:57] LABS: BASOPHILS 0.1 %; BASOPHILS ABSOLUTE 0.01 10/3/uL (0.0-0.16); EOSINOPHILS 0 %; HEMATOCRIT 30.1 % (36.0-48.0); IMMATURE GRANULOCYTES 0.6 %; IMMATURE GRANULOCYTES ABSOLUTE 0.05 10/3/uL (0.0-0.11); LYMPHOCYTES ABSOLUTE 1.02 10/3/uL (0.67-4.30); MEAN CORPUS HGB CONC 33.2 g/dL (32.0-36.0); MEAN CORPUSCULAR HEMOGLOB 27.8 pg (26.0-34.0); MEAN CORPUSCULAR VOLUME 83.6 fL (80-100); MEAN PLATELET VOLUME 9.6 fL (9.2-13.0); MONOCYTES 0.6 %; MONOCYTES ABSOLUTE 0.05 10/3/uL (0.21-1.20); NEUTROPHILS 86.7 %; NEUTROPHILS ABSOLUTE 7.35 10/3/uL (2.02-8.40); PLATELET COUNT 260 10/3/uL (150-400); RBC DISTRIBUTION WIDTH 15.1 % (12.0-16.0); WHITE BLOOD CELLS 8.5 10/3/uL (4.5-10.5)
[2016-10-22 06:58] LABS: MANUAL DIFF NO %
[2016-10-22 07:07] LABS: PROTIME (NOT ORD) 13.2 SEC (12.0-14.5)
[2016-10-22 07:20] LABS: ALBUMIN 2.5 G/DL (3.5-5.0); ALKALINE PHOSPHATASE 78 U/L (45-117); BUN (BLOOD UREA NITROGEN) 61 MG/DL (6-23); CALCIUM, SERUM 9.3 MG/DL (8.5-10.4); CHLORIDE, SERUM 108 MMOL/L (96-112); CO2 (CARBON DIOXIDE) 18 MMOL/L (24-34); CREATININE 4.82 MG/DL (0.55-1.02); DEPAKENE (VALPROIC ACID) 68.4 MCG/ML (50.0-100.0); DILANTIN (PHENYTOIN) 5.8 MCG/ML (10.0-20.0); DIRECT BILIRUBIN < 0.1 MG/DL (0.0-0.4); GFR AFRICAN AMERICAN 10 ML/MIN (>=60); GFR NON AFRICAN AMERICAN 9 ML/MIN (>=60); GLUCOSE, SERUM 215 MG/DL (60-99); INDIRECT BILIRUBIN(NOT ORDER) 0.1 MG/DL (0.1-0.9); PARTIAL THROMBO TIME 25.9 SEC (22.5-37.2); POTASSIUM, SERUM 4.8 MMOL/L (3.5-5.3); SGOT(AST) 7 U/L (5-40); SGPT(ALT) 7 U/L (5-65); SODIUM, SERUM 137 MMOL/L (135-148); TOTAL BILIRUBIN 0.2 MG/DL (0-1.2); TOTAL PROTEIN 6.6 G/DL (6.0-8.5)
[2016-10-23 04:40] LABS: BASOPHILS 0.1 %; BASOPHILS ABSOLUTE 0.01 10/3/uL (0.0-0.16); EOSINOPHILS 0 %; HEMATOCRIT 28.4 % (36.0-48.0); HEMOGLOBIN 9.5 g/dL (12.0-16.0); IMMATURE GRANULOCYTES 0.5 %; IMMATURE GRANULOCYTES ABSOLUTE 0.04 10/3/uL (0.0-0.11); LYMPHOCYTES 13.3 %; MEAN CORPUS HGB CONC 33.5 g/dL (32.0-36.0); MEAN CORPUSCULAR HEMOGLOB 27.4 pg (26.0-34.0); MEAN CORPUSCULAR VOLUME 81.8 fL (80-100); MONOCYTES 2.3 %; MONOCYTES ABSOLUTE 0.19 10/3/uL (0.21-1.20); NEUTROPHILS 83.8 %; NEUTROPHILS ABSOLUTE 6.94 10/3/uL (2.02-8.40); PLATELET COUNT 247 10/3/uL (150-400); RBC DISTRIBUTION WIDTH 14.8 % (12.0-16.0); RED CELL COUNT 3.47 10/6/uL (4.0-5.6); WHITE BLOOD CELLS 8.3 10/3/uL (4.5-10.5)
[2016-10-23 04:41] LABS: MANUAL DIFF NO %
[2016-10-23 04:44] LABS: ALBUMIN 2.4 G/DL (3.5-5.0); CALCIUM, SERUM 8.8 MG/DL (8.5-10.4); CHLORIDE, SERUM 109 MMOL/L (96-112); CO2 (CARBON DIOXIDE) 16 MMOL/L (24-34); CREATININE 4.77 MG/DL (0.55-1.02); GFR AFRICAN AMERICAN 10 ML/MIN (>=60); GFR NON AFRICAN AMERICAN 9 ML/MIN (>=60); GLUCOSE, SERUM 191 MG/DL (60-99); PHOSPHORUS, SERUM 5.2 MG/DL (2.5-4.5); POTASSIUM, SERUM 4.7 MMOL/L (3.5-5.3); SODIUM, SERUM 139 MMOL/L (135-148)
[2016-10-23 04:47] LABS: BUN (BLOOD UREA NITROGEN) 66 MG/DL (6-23)
[2016-10-24 07:01] LABS: BUN (BLOOD UREA NITROGEN) 69 MG/DL (6-23); CALCIUM, SERUM 8.6 MG/DL (8.5-10.4); CHLORIDE, SERUM 112 MMOL/L (96-112); CO2 (CARBON DIOXIDE) 17 MMOL/L (24-34); CREATININE 4.69 MG/DL (0.55-1.02); GFR AFRICAN AMERICAN 10 ML/MIN (>=60); GFR NON AFRICAN AMERICAN 9 ML/MIN (>=60); SODIUM, SERUM 142 MMOL/L (135-148)
[2016-10-24 07:03] LABS: GLUCOSE, SERUM 146 MG/DL (60-99)
[2016-10-24 17:43] LABS: CSF BASO 0 % (NO REF RANGE); CSF COLOR (NOT ORD) COLORLESS (COLORLESS); CSF EOS 0 % (0-1); CSF LYMPH (NOT ORD) 51 % (28-96); CSF MONO 45 % (16-56); CSF RBC (NOT ORD) 4 MM3 (NO REFERENCE); CSF SEGS (NOT ORD) 4 % (0-7); CSF WBC (NOT ORD) 1 /uL (0-10); CSF XANTHROCHROMIA NEG (NEG)
[2016-10-24 17:44] LABS: CSF APPEARANCE (NOT ORD) CLEAR (CLEAR)
[2016-10-26 03:49] LABS: BASOPHILS 0.3 %; BASOPHILS ABSOLUTE 0.02 10/3/uL (0.0-0.16); EOSINOPHILS 0 %; HEMATOCRIT 32.6 % (36.0-48.0); HEMOGLOBIN 10.7 g/dL (12.0-16.0); IMMATURE GRANULOCYTES 0.6 %; IMMATURE GRANULOCYTES ABSOLUTE 0.04 10/3/uL (0.0-0.11); LYMPHOCYTES 22.5 %; LYMPHOCYTES ABSOLUTE 1.57 10/3/uL (0.67-4.30); MANUAL DIFF NO %; MEAN CORPUS HGB CONC 32.8 g/dL (32.0-36.0); MEAN CORPUSCULAR HEMOGLOB 27.3 pg (26.0-34.0); MEAN CORPUSCULAR VOLUME 83.2 fL (80-100); MEAN PLATELET VOLUME 9.8 fL (9.2-13.0); MONOCYTES ABSOLUTE 0.49 10/3/uL (0.21-1.20); NEUTROPHILS 69.6 %; NEUTROPHILS ABSOLUTE 4.87 10/3/uL (2.02-8.40); PLATELET COUNT 271 10/3/uL (150-400); RBC DISTRIBUTION WIDTH 14.9 % (12.0-16.0); RED CELL COUNT 3.92 10/6/uL (4.0-5.6)
[2016-10-26 03:55] LABS: INTERNATIONAL NORMAL RATI 1.1 UNITS (-); PARTIAL THROMBO TIME 26.3 SEC (22.5-37.2); PROTIME (NOT ORD) 14.2 SEC (12.0-14.5)
[2016-10-26 04:04] LABS: A/G RATIO 0.6 (0.7-1.9); ALBUMIN 2.4 G/DL (3.5-5.0); ALKALINE PHOSPHATASE 75 U/L (45-117); CALCIUM, SERUM 8.3 MG/DL (8.5-10.4); CHLORIDE, SERUM 114 MMOL/L (96-112); CO2 (CARBON DIOXIDE) 16 MMOL/L (24-34); CREATININE 4.25 MG/DL (0.55-1.02); GFR AFRICAN AMERICAN 12 ML/MIN (>=60); GFR NON AFRICAN AMERICAN 10 ML/MIN (>=60); GLOBULIN 3.8 G/DL (2.5-4.1); PHOSPHORUS, SERUM 5.3 MG/DL (2.5-4.5); POTASSIUM, SERUM 4.8 MMOL/L (3.5-5.3); SGOT(AST) 6 U/L (5-40); SGPT(ALT) 9 U/L (5-65); SODIUM, SERUM 142 MMOL/L (135-148); TOTAL BILIRUBIN 0.2 MG/DL (0-1.2); TOTAL PROTEIN 6.2 G/DL (6.0-8.5)
[2016-10-26 04:06] LABS: BUN (BLOOD UREA NITROGEN) 73 MG/DL (6-23); GLUCOSE, SERUM 99 MG/DL (60-99)
[2016-10-27 17:44] LABS: HSV DNA TYPE 1 Not Detected (NOTDET); HSV DNA TYPE 2 Not Detected (NOTDET)
== END 2016-10-28 16:31 | disposition hospice, inpatient (51) | DRG 682 ==
LOC: ER 08:06 → 4SO 11:18 → IMCU 10-20 22:44 → 4SO 10-23 07:52 → MIC 10-26 02:26
PROVIDERS: Emergency Medicine; Internal Medicine Critical Care Medicine; Internal Medicine Geriatric Medicine; Internal Medicine Nephrology; Nurse Practitioner; Psychiatry & Neurology Neurology; Registered Nurse
PROC: 02HV33Z Insertion of Infusion Device into Superior Vena Cava, Percutaneous Approach (ICD-10-PCS; principal; 2016-10-22)
PROC: 4A02X4A Measurement of Cardiac Electrical Activity, Guidance, External Approach (ICD-10-PCS; 2016-10-22)
PROC: 009U3ZX Drainage of Spinal Canal, Percutaneous Approach, Diagnostic (ICD-10-PCS; 2016-10-24)
PROC: B01B1ZZ Fluoroscopy of Spinal Cord using Low Osmolar Contrast (ICD-10-PCS; 2016-10-24)
DX: N17.9 Acute kidney failure, unspecified (principal); G93.41 Metabolic encephalopathy; E87.2 Acidosis; I50.9 Heart failure, unspecified; I13.0 Hypertensive heart and chronic kidney disease with heart failure and stage 1 through stage 4 chronic kidney disease, or unspecified chronic kidney disease; N39.0 Urinary tract infection, site not specified; D63.1 Anemia in chronic kidney disease; Z66 Do not resuscitate; N18.4 Chronic kidney disease, stage 4 (severe); I16.0 Hypertensive urgency; R56.9 Unspecified convulsions; G35 Multiple sclerosis; F01.50 Vascular dementia, unspecified severity, without behavioral disturbance, psychotic disturbance, mood disturbance, and anxiety; E66.9 Obesity, unspecified; H40.9 Unspecified glaucoma; E55.9 Vitamin D deficiency, unspecified; Z68.31 Body mass index [BMI] 31.0-31.9, adult; Z79.899 Other long term (current) drug therapy; Z88.5 Allergy status to narcotic agent; Z90.710 Acquired absence of both cervix and uterus; Z98.890 Other specified postprocedural states; Z87.891 Personal history of nicotine dependence
CPT/HCPCS: 36569; 36600; 62270; 70450; 70551; 71010; 74176; 76775; 77003; 80048; 80053; 80061; 80069; 80076; 80164; 80185; 81001; 82140; 82306; 82330; 82533; 82570; 82607; 82746; 82805; 82945; 82962; 83036; 83690; 83735; 83880; 83970; 84100; 84156; 84157; 84300; 84439; 84443; 84484; 85025; 85610; 85652; 85730; 86140; 87040; 87070; 87150; 87205; 87327; 87529; 87529-59; 87641; 89051; 92610-GN; 93880; 95816; 95819; 97161-GP; 99285; A9270-GY; C1751; C8929; C9113; C9254; G8978-CN-GP; G8979-CM-GP; J0360; J0692; J1953; J2930; J3370; Q2009; Q9957